=== PATIENT | female | born 1985 ===

== ENCOUNTER 2017-08-29 00:37 | Inpatient (IN) | payer MEDICAID, OTHER ==
[2017-08-29 02:08] LABS: BASO # 0.1 K/uL (0.0-0.2); BASO % 0.9 % (0.0-2.0); EOS # 0.2 K/uL (0.0-0.7); HCG,QUALITATIVE URINE NEGATIVE (NEGATIVE); HEMOGLOBIN 12.9 g/dL (11.0-16.0); LYMPH # 2.2 K/uL (1.0-4.3); LYMPH % 18.1 % (20.0-40.0); MEAN CELL VOLUME 87.8 fL (81.0-99.0); MEAN CORPUSCULAR HEMOGLOBIN 29.7 pg (27.0-31.0); MEAN CORPUSCULAR HGB CONC 33.8 g/dL (33.0-37.0); MEAN PLATELET VOLUME 8.9 fL (7.2-11.7); MONO # 1.1 K/uL (0.0-0.8); MONO % 9.1 % (0.0-10.0); NEUT # 8.6 K/uL (1.8-7.0); NEUT % 69.9 % (50.0-75.0); RBC 4.33 Mil/uL (3.80-5.20); RED CELL DISTRIBUTION WIDTH 12.7 % (11.5-14.5); WHITE BLOOD COUNT 12.3 K/uL (4.8-10.8)
[2017-08-29 02:14] LABS: SQUAMOUS EPITHIAL 3 /hpf (0-5); URINE BILIRUBIN NEGATIVE (NEGATIVE); URINE BLOOD 1+ (NEGATIVE); URINE CLARITY Clear (Clear); URINE COLOR Yellow (YELLOW); URINE GLUCOSE (UA) NORMAL (Normal); URINE LEUKOCYTE ESTERASE NEG Leu/uL (Negative); URINE PROTEIN NEGATIVE (NEGATIVE); URINE UROBILINOGEN NORMAL mg/dL (0.2-1.0)
[2017-08-29 02:20] LABS: ACETAMINOPHEN < 10.0 ug/mL (10.0-30.0); SALICYLATE < 1.0 mg/dL 1
[2017-08-29 02:22] LABS: ALB/GLOB RATIO 1.2 (1.0-2.1); ALBUMIN 4.1 g/dL (3.5-5.0); ALT/SGPT 21 U/L (9-52); AST/SGOT 19 U/L (14-36); BLOOD UREA NITROGEN 11 mg/dL (7-17); CALCIUM 8.7 mg/dl (8.6-10.4); GFR AFRICAN-AMERICAN > 60; GFR NON-AFRICAN AMERICAN > 60
[2017-08-29 02:25] LABS: BARBITURATES, UR NEGATIVE (NEGATIVE); OPIATES, UR NEGATIVE (NEGATIVE); PHENCYCLIDINE, UR NEGATIVE (NEGATIVE)
[2017-08-29 02:38] LABS: BENZODIAZEPINES, UR POSITIVE (NEGATIVE)
--- NOTE | 2017-08-29 04:30 | C.PDOC ---
Time Seen by Provider: 08/29/17 01:10 Chief Complaint (Nursing): Psychiatric Evaluation History Per: Patient Onset/Duration Of Symptoms: Days Current Symptoms Are (Timing): Worse Suicide/Self Injury Attempted (Context): None Modifying Factor(s): Alcohol Severity: Moderate Associated Symptoms: Depression, Suicidal Thoughts Additional History Per: Prior Records Past Medical History Reviewed: Historical Data, Nursing Documentation, Vital Signs Vital Signs: Last Vital Signs Temp 98.7 F 08/29/17 04:01 Pulse 98 H 08/29/17 04:01 Resp 18 08/29/17 04:01 BP 95/57 L 08/29/17 04:01 Pulse Ox 97 08/29/17 04:01 - Medical History PMH: Anxiety, Depression, Gastritis, Post Traumatic Stress Disorder Family History: States: Unknown Family Hx - Social History Hx Alcohol Use: Yes (TODAY) Hx Substance Use: No - Immunization History Hx Tetanus Toxoid Vaccination: No Hx Influenza Vaccination: No Hx Pneumococcal Vaccination: No Review Of Systems Except As Marked, All Systems Reviewed And Found Negative. Constitutional: Negative for: Fever, Weakness Cardiovascular: Negative for: Chest Pain Respiratory: Negative for: Shortness of Breath Gastrointestinal: Negative for: Vomiting, Abdominal Pain Musculoskeletal: Negative for: Neck Pain Skin: Negative for: Rash Neurological: Negative for: Weakness, Numbness Physical Exam - Physical Exam Appears: Non-toxic, No Acute Distress, Other (AOB) Skin: Normal Color, Warm, Dry Head: Atraumatic, Normacephalic Eye(s): bilateral: PERRL Neck: Normal ROM, Supple Cardiovascular: Rhythm Regular Respiratory: Normal Breath Sounds, No Accessory Muscle Use Gastrointestinal/Abdominal: Soft, No Tenderness Back: No CVA Tenderness Extremity: Normal ROM, Other (scars on b/l volar forearms from previous cutting. ) Pulses: Left Radial: Normal, Right Radial: Normal Neurological/Psych: Oriented x3, Normal Motor, Normal Sensation ED Course And Treatment - Laboratory Results Result Diagrams: 08/29/17 02:05 08/29/17 02:05 Urine POC: Negative O2 Sat by Pulse Oximetry: 97 Pulse Ox Interpretation: Normal Progress Note: Pt is medically stable for psychiatric admission. Disposition Counseled Patient/Family Regarding: Studies Performed, Diagnosis - Disposition Disposition: HOSPITALIZED Disposition Time: 04:30 Condition: STABLE - Clinical Impression Clinical Impression: Major depression Decision To Admit - Pt Status Changed To: Hospital Disposition Of: Inpatient - Admit Certification Admit to Inpatient:: After my assessment, the patient will require hospitalization for at least two midnights. This is because of the severity of symptoms shown, intensity of services needed, and/or the medical risk in this patient being treated as an outpatient. - InPatient: Physician Admission Certification: I certify that this patient requires 2 or more midnights of care for the following reason:: Psych. - . Bed Request Type: Psychiatry Admitting Physician: Marie Zimmerman Patient Diagnosis: Major depression
--- NOTE | 2017-08-29 06:19 | PCM.BM ---
<Juana Herrera - Last Filed: 08/29/17 06:18> Treatment Plan Problems - Problems identified on initial assessmt Auditory Hallucinations Date Initiated: 08/29/17 Time Initiated: 05:30 Assessment reference: NA Suicidal Ideation Date Initiated: 08/29/17 Time Initiated: 05:30 Assessment reference: NA Status: Active Treatment assets and liabiliti Patient Assests: ADL independent, negotiates basic needs Patient Liabilities: substance abuse (Alcohol) - Milieu Protocol Maintain good personal hygiene: daily Encourage regular showers, daily Remind patient to perform daily oral care, every shift Assist patient to perform ADL's Maintain personal safety: every shift Educate patient to report safety concerns to staff, every shift Monitor environment for contraband/sharps Medication safety: Monitor for expected outcome, potential side effects: every shift, Assess barriers to learning: every shift, Assess readiness for medication education: every shift <Marissa Harrison - Last Filed: 08/30/17 13:27> Family Contact Family involvement: Family/SO is involved Family contact: Patient declines to allow family contact at present - Goals for Treatment Patient goals for treatment: "I want to go back to my private psychiatrist." Discharge/Continuing Care - Education Needs Education Needs: Patient Medication, Patient Coping Skills - Discharge Discharge Criteria: Tolerates medication w/o severe side effects, Reduction of target symptoms Discharge to:: Home, With Family - Treatment Team Participation Discussed with Family/SO: No Was Patient/Family/SO present at Treatment Team Meeting: Yes
[2017-08-29] MEDS: Multiple Vitamins Tab PO SCH (10:20)
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
[2017-08-30 06:40] VITALS: O2SAT 98
[2017-08-30] MEDS: Multiple Vitamins Tab PO SCH (10:14)
--- NOTE | 2017-08-30 10:33 | PCM.PYCHPN ---
Psychiatric Progress Note - Psychiatric Progress Note Patient seen today, length of contact: 15 min Patient Chief Complaint: I'm feeling little better.' Problems Identified/Issues Discussed: Patient seen and evaluated, chart reviewed and discussed with the nurse. Pt still reports depressed mood and reports feelings of hopelessness and helplessness. She reports some improvement in sleep. However she remained isolated and withdrawn. She appears somewhat internally preoccupied and guarded. She is taking medications and denies any side effects Symptoms are improving but she needs more time for stabilization. Supportive therapy and psychoeducation were given. Medication Change: Yes Medical Record Reviewed: Yes Mental Status Examination - Cognitive Function Orientation: Person, Place, Situation, Time Memory: Intact Attention: WNL Concentration: Poor Association: Loose Fund of Knowledge: Poor - Mood Mood: Depressed, Anxious - Affect Affect: Constricted, Depressed - Speech Speech: Soft - Formal Thought Process Formal Thought Process: Hallucinations - Suicidal Ideation Suicidal Ideation: No - Homicidal Ideation Homicidal Ideation: No Goal/Treatment Plan - Goal/Treatment Plan Need for Continued Stay: Severe depression anxiety, Severe functional impairment Progress Toward Problem(s) and Goals/Treatment Plan: Major depressive disorder recurrent severe with psychotic features CBT Psychoeducation Supportive therapy, group therapy, individual therapy Hydroxyzine 25 mg by mouth every 6 hours when necessary Trazodone 50 mg by mouth daily at bedtime Sertraline 50 mg PO Daily Aripiprazole 10 mg by mouth daily at bedtime - Smoking Cessation Smoking Cessation Initiated: No
[2017-08-31] MEDS: Multiple Vitamins Tab PO SCH (09:08)
--- NOTE | 2017-08-31 14:16 | PCM.PYCHPN ---
Psychiatric Progress Note - Psychiatric Progress Note Patient seen today, length of contact: 15 min Patient Chief Complaint: I'm feeling little better.' Problems Identified/Issues Discussed: Patient seen and evaluated, chart reviewed and discussed with the nurse. Pt still reports depressed mood and reports feelings of hopelessness and helplessness. She reports some improvement in sleep. However she remained isolated and withdrawn. She appears somewhat internally preoccupied and guarded. She is taking medications and denies any side effects Symptoms are improving but she needs more time for stabilization. Supportive therapy and psychoeducation were given. Medication Change: Yes (Increase Zoloft) Medical Record Reviewed: Yes Mental Status Examination - Cognitive Function Orientation: Person, Place, Situation, Time Memory: Intact Attention: WNL Concentration: Poor Association: Loose Fund of Knowledge: Poor - Mood Mood: Depressed, Anxious - Affect Affect: Constricted, Depressed - Speech Speech: Soft - Formal Thought Process Formal Thought Process: Hallucinations - Suicidal Ideation Suicidal Ideation: No - Homicidal Ideation Homicidal Ideation: No Goal/Treatment Plan - Goal/Treatment Plan Need for Continued Stay: Severe depression anxiety, Severe functional impairment Progress Toward Problem(s) and Goals/Treatment Plan: Major depressive disorder recurrent severe with psychotic features CBT Psychoeducation Supportive therapy, group therapy, individual therapy Hydroxyzine 25 mg by mouth every 6 hours when necessary Trazodone 100 mg by mouth daily at bedtime Sertraline 100 mg PO Daily Aripiprazole 10 mg by mouth daily at bedtime
[2017-09-01 06:19] VITALS: RESP 20
[2017-09-01] MEDS: Multiple Vitamins Tab PO SCH (10:19)
[2017-09-01] MEDS ORDERED: Aluminum Hydroxide/Magnesium Hydroxide Susp (30 mL) PO PRN (21:44)
[2017-09-02 06:49] VITALS: TEMP 98.5
--- NOTE | 2017-09-02 09:03 | PCM.PYCHPN ---
Psychiatric Progress Note - Psychiatric Progress Note Patient seen today, length of contact: 15 min Patient Chief Complaint: I'm feeling little better.' Problems Identified/Issues Discussed: Patient seen and evaluated, chart reviewed and discussed with the nurse. Pt reports improvement in her depressed mood and reports reports improvement in her feelings of hopelessness and helplessness. She reports improvement in sleep. She is taking medications and denies any side effects Symptoms are improving but she needs more time for stabilization. Supportive therapy and psychoeducation were given. Medication Change: Yes (Increase Zoloft) Medical Record Reviewed: Yes Mental Status Examination - Cognitive Function Orientation: Person, Place, Situation, Time Memory: Intact Attention: WNL Concentration: WNL Association: WNL Fund of Knowledge: Poor - Mood Mood: Depressed, Anxious - Affect Affect: Constricted, Depressed - Speech Speech: Soft - Formal Thought Process Formal Thought Process: No Impairment - Suicidal Ideation Suicidal Ideation: No - Homicidal Ideation Homicidal Ideation: No Goal/Treatment Plan - Goal/Treatment Plan Need for Continued Stay: Severe depression anxiety, Severe functional impairment Progress Toward Problem(s) and Goals/Treatment Plan: Major depressive disorder recurrent severe with psychotic features CBT Psychoeducation Supportive therapy, group therapy, individual therapy Hydroxyzine 25 mg by mouth every 6 hours when necessary Trazodone 100 mg by mouth daily at bedtime Sertraline 200 mg PO Daily Aripiprazole 10 mg by mouth daily at bedtime
[2017-09-02 09:09] VITALS: BP 113/76; PULSE 76
[2017-09-02] MEDS: Multiple Vitamins Tab PO SCH (09:36)
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
== END 2017-09-02 11:00 | disposition home or self-care (01) | DRG 430 ==
LOC: C.ER 00:37 → EEVIPCON 04:31 → C.5E 04:31
PROVIDERS: ADMIT Psychiatry & Neurology Psychiatry; ATTEND Psychiatry & Neurology Psychiatry
PROC: GZHZZZZ Group Psychotherapy (ICD-10-PCS; principal; 2017-08-29)
PROC: GZ58ZZZ Individual Psychotherapy, Cognitive-Behavioral (ICD-10-PCS; 2017-08-29)
PROC: GZ56ZZZ Individual Psychotherapy, Supportive (ICD-10-PCS; 2017-08-29)
DX: F33.3 Major depressive disorder, recurrent, severe with psychotic symptoms (principal); F43.10 Post-traumatic stress disorder, unspecified; G47.00 Insomnia, unspecified; Z91.410 Personal history of adult physical and sexual abuse; R45.851 Suicidal ideations; F41.1 Generalized anxiety disorder

== ENCOUNTER 2017-11-03 21:06 | Emergency (ER) | payer MEDICAID, OTHER ==
[2017-11-03 21:18] VITALS: BP 94/65; PULSE 104; RESP 18; TEMP 98.4; O2SAT 96
--- NOTE | 2017-11-03 21:56 | C.PDOC ---
History Of Present Illness 32 year old female presents to the ED c/o itching insect bites to her right lower leg. Patient noticed new swelling and redness to the area. Patient states she did not take any medications at home. Patient denies fever, chills, nausea, vomit, weakness, numbness, recent travel, sick contacts. Time Seen by Provider: 11/03/17 21:28 Chief Complaint (Nursing): Lower Extremity Problem/Injury History Per: Patient History/Exam Limitations: no limitations Onset/Duration Of Symptoms: Days Current Symptoms Are (Timing): Still Present Recent travel outside of the [place]: No Additional History Per: Patient - Ankle/Foot Description Of Injury: Other Past Medical History Reviewed: Historical Data, Nursing Documentation, Vital Signs Vital Signs: Last Vital Signs Temp 98.4 F 11/03/17 21:14 Pulse 104 H 11/03/17 21:14 Resp 18 11/03/17 21:14 BP 94/65 L 11/03/17 21:14 Pulse Ox 96 11/03/17 23:30 - Medical History PMH: Anxiety, Depression, Gastritis, HTN, Post Traumatic Stress Disorder Denies: Diabetes, Hepatitis, HIV, Chronic Kidney Disease, Seizures, Sexually Transmitted Disease Surgical History: No Surg Hx - [facility] Procedures GROUP PSYCHOTHERAPY (08/29/17) INDIVIDUAL PSYCHOTHERAPY, COGNITIVE-BEHAVIORAL (08/29/17) INDIVIDUAL PSYCHOTHERAPY, SUPPORTIVE (08/29/17) Family History: States: Unknown Family Hx - Social History Hx Alcohol Use: Yes Hx Substance Use: No - Immunization History Hx Tetanus Toxoid Vaccination: No Hx Influenza Vaccination: No Hx Pneumococcal Vaccination: No Review Of Systems Constitutional: Negative for: Fever, Chills ENT: Negative for: Mouth Swelling, Throat Swelling Cardiovascular: Negative for: Chest Pain Respiratory: Negative for: Cough, Shortness of Breath Gastrointestinal: Negative for: Nausea, Vomiting Musculoskeletal: Positive for: Leg Pain Skin: Positive for: Rash Neurological: Negative for: Weakness, Numbness Physical Exam - Physical Exam Appears: Non-toxic, No Acute Distress Skin: Warm, Dry, Rash (scattered erythematous papules to right lower leg. No streaking) Head: Atraumatic, Normacephalic Eye(s): bilateral: Normal Inspection Oral Mucosa: Moist Tongue: No Swelling Lips: No Swelling Throat: Normal, No Erythema, No Exudate Neck: Normal ROM, Supple Chest: Symmetrical Cardiovascular: Rhythm Regular Respiratory: Normal Breath Sounds, No Rales, No Rhonchi, No Wheezing Extremity: Normal ROM, No Tenderness, No Calf Tenderness, Capillary Refill (< 2 seconds), No Swelling Extremity: Bilateral: Atraumatic Pulses: Left Dorsalis Pedis: Normal, Right Dorsalis Pedis: Normal Neurological/Psych: Oriented x3, Normal Speech, Normal Cognition, Normal Motor, Normal Sensation Gait: Steady ED Course And Treatment O2 Sat by Pulse Oximetry: 96 (ON RA) Pulse Ox Interpretation: Normal Progress Note: Plan: - Benadryl 25 mg PO. Patient is resting comfortably, tolerating PO, has no shortness of breath, has no intra-oral swelling, no stridor. Patient notes that pruritus has improved.. Patient was advised to avoid potential allergens, and to follow up with physician in 1-2 days. Disposition Counseled Patient/Family Regarding: Diagnosis, Need For Followup, Rx Given - Disposition Referrals: [facility] [Outside] Disposition: HOME/ ROUTINE Disposition Time: 21:53 Condition: STABLE Additional Instructions: PLEASE FOLLOW UP WITH PMD OR CLINIC IN 2 DAYS TAKE BENADRYL NEEDED FOR ITCHING RETURN IF MODERATE PAIN, SWELLING, DRAINING , FEVER OR WORSE Instructions: Insect Bites and Stings (DC) Forms: [employer] (Macanese) - Clinical Impression Clinical Impression: Insect bite - PA / PRODUCT SAFETY CONSULTANT / Resident Statement MD/DO has reviewed & agrees with the documentation as recorded. - Scribe Statement The provider has reviewed the documentation as recorded by the Scribe Dante Cee All medical record entries made by the Scribe were at my direction and personally dictated by me. I have reviewed the chart and agree that the record accurately reflects my personal performance of the history, physical exam, medical decision making, and the department course for this patient. I have also personally directed, reviewed, and agree with the discharge instructions and disposition.
== END 2017-11-03 22:09 | disposition home or self-care (01) ==
LOC: C.ER 21:06
DX: S80.861A Insect bite (nonvenomous), right lower leg, initial encounter (principal); W57.XXXA Bitten or stung by nonvenomous insect and other nonvenomous arthropods, initial encounter; Y92.9 Unspecified place or not applicable

== ENCOUNTER 2018-01-29 17:57 | Inpatient (IN) | payer OTHER ==
[2018-01-29 19:08] LABS: BASO # 0.1 K/uL (0.0-0.2); BASO % 0.8 % (0.0-2.0); EOS # 0.2 K/uL (0.0-0.7); EOS % 2.2 % (0.0-4.0); HEMOGLOBIN 14.2 g/dL (11.0-16.0); LYMPH # 1.7 K/uL (1.0-4.3); LYMPH % 21.2 % (20.0-40.0); MEAN CELL VOLUME 88.5 fL (81.0-99.0); MEAN CORPUSCULAR HEMOGLOBIN 29.8 pg (27.0-31.0); MEAN CORPUSCULAR HGB CONC 33.7 g/dL (33.0-37.0); MEAN PLATELET VOLUME 8.3 fL (7.2-11.7); MONO # 0.6 K/uL (0.0-0.8); MONO % 7.5 % (0.0-10.0); NEUT # 5.5 K/uL (1.8-7.0); NEUT % 68.3 % (50.0-75.0); NRBC % 0.1 % (0.0-2.0); RBC 4.74 Mil/uL (3.80-5.20); RED CELL DISTRIBUTION WIDTH 12.5 % (11.5-14.5)
[2018-01-29 19:09] LABS: HCG,QUALITATIVE URINE NEGATIVE (NEGATIVE)
[2018-01-29 19:12] LABS: URINE BILIRUBIN NEGATIVE (NEGATIVE); URINE BLOOD 1+ (NEGATIVE); URINE CLARITY Clear (Clear); URINE COLOR Colorless (YELLOW); URINE GLUCOSE (UA) NORMAL (Normal); URINE LEUKOCYTE ESTERASE NEG Leu/uL (Negative); URINE PROTEIN NEGATIVE (NEGATIVE); URINE UROBILINOGEN NORMAL mg/dL (0.2-1.0)
[2018-01-29 19:23] LABS: ALBUMIN 4.6 g/dL (3.5-5.0)
[2018-01-29 19:25] LABS: ALB/GLOB RATIO 1.3 (1.0-2.1); ALT/SGPT 26 U/L (9-52); AST/SGOT 24 U/L (14-36); BARBITURATES, UR NEGATIVE (NEGATIVE); BENZODIAZEPINES, UR NEGATIVE (NEGATIVE); BLOOD UREA NITROGEN 8 mg/dL (7-17); CALCIUM 9.5 mg/dl (8.6-10.4); GFR NON-AFRICAN AMERICAN > 60; OPIATES, UR NEGATIVE (NEGATIVE); PHENCYCLIDINE, UR NEGATIVE (NEGATIVE)
--- NOTE | 2018-01-29 19:53 | C.PDOC ---
History Of Present Illness 32 y/o female pt with hx of depression and suicidal attempts presents to the ER for c/o hearing voices that tells her to self-harm. Pt reports she drinks alcohol and listens to music in attempt to block out the voices. Pt denies visu al hallucination, HI, DM, HTN, nausea and vomiting. Pt was admitted on August 2017 for similar sx. Pt notes she takes medication for her depression. Time Seen by Provider: 01/29/18 18:26 Chief Complaint (Nursing): Psychiatric Evaluation History Per: Patient History/Exam Limitations: no limitations Onset/Duration Of Symptoms: Days Current Symptoms Are (Timing): Still Present Modifying Factor(s): Alcohol Associated Symptoms: Depression, Paranoia Past Medical History Reviewed: Historical Data, Nursing Documentation, Vital Signs Vital Signs: Last Vital Signs Temp 98.2 F 01/29/18 18:26 Pulse 114 H 01/29/18 18:26 Resp 26 H 01/29/18 18:26 BP 125/80 01/29/18 18:26 Pulse Ox 99 01/29/18 18:26 - Medical History PMH: Anxiety, Depression, Gastritis, HTN, [facility] Tra[facility] PS[facility] (08/29/17) INDIVIDUAL PSYCHOTHERAPY, COGNITIVE-BEHAVIORAL (08/29/17) INDIVIDUAL PSYCHOTHERAPY, SUPPORTIVE (08/29/17) Family History: States: Unknown Family Hx - Social History Hx Alcohol Use: Yes Hx Substance Use: No - Immunization History Hx Tetanus Toxoid Vaccination: No Hx Influenza Vaccination: No Hx Pneumococcal Vaccination: No Review Of Systems Except As Marked, All Systems Reviewed And Found Negative. Constitutional: Negative for: Other (hx of DM, HTN) Gastrointestinal: Negative for: Nausea, Vomiting Neurological: Positive for: Other (audio hallucination; no visual hallucination) Psych: Positive for: Depression, Suicidal ideation. Negative for: Other (HI) Physical Exam - Physical Exam Appears: Non-toxic, Other (fidgety and has alcohol on breath) Skin: Warm, Dry Head: Normacephalic Eye(s): bilateral: Normal Inspection, EOMI Chest: Symmetrical Cardiovascular: Rhythm Regular Respiratory: Normal Breath Sounds Gastrointestinal/Abdominal: Soft, No Tenderness Back: No CVA Tenderness Neurological/Psych: Oriented x3, Normal Speech, Other (paranoid ) ED Course And Treatment - Laboratory Results Result Diagrams: 01/29/18 19:05 01/29/18 19:05 O2 Sat by Pulse Oximetry: 99 (RA) Pulse Ox Interpretation: Normal Medical Decision Making Medical Decision Making: Plans: -- chem labs -- blood work -- HCG -- UA Labs remarkable for EtoH of 223, estimate clinically sober at midnight. 19:58 Crisis is evaluating pt. 23:35 Crisis states pt needs be reevaluated as they were not able to get enough information from her; will RTED to continue to eval pt. Disposition - Disposition Disposition Time: 23:41 Condition: STABLE - Clinical Impression Clinical Impression: Alcohol intoxication, Major depression, Suicidal ideation - Scribe Statement The provider has reviewed the documentation as recorded by the Scribe Velazquez Do Provider Attestation: All medical record entries made by the Scribe were at my direction and personally dictated by me. I have reviewed the chart and agree that the record accurately reflects my personal performance of the history, physical exam, medical decision making, and the department course for this patient. I have also personally directed, reviewed, and agree with the discharge instructions and disposition. Physician Patient Turnover Patient Signed Over To: Jeannie Garrett Handoff Comments: pending crisis eval
[2018-01-30] MEDS ORDERED: Aluminum Hydroxide/Magnesium Hydroxide Susp (30 mL) PO PRN (04:02)
--- NOTE | 2018-01-30 04:35 | PCM.BM ---
<Nguyen Andrade - Last Filed: 01/30/18 04:33> Treatment Plan Problems - Problems identified on initial assessmt Depression Date Initiated: 01/30/18 Time Initiated: 04:33 Assessment reference: NA Status: Active ([place]) Hallucinations Date Initiated: 01/30/18 Time Initiated: 04:34 Assessment reference: NA Status: Active Treatment assets and liabiliti Patient Assests: cooperative, insightful, ADL independent, physically healthy, good support system, negotiates basic needs Patient Liabilities: substance abuse - Milieu Protocol Maintain good personal hygiene: daily Encourage regular showers, daily Remind patient to perform daily oral care, daily Assist patient to perform ADL's Maintain personal safety: every shift Educate patient to report safety concerns to staff, every shift Monitor environment for contraband/sharps Medication safety: Monitor for expected outcome, potential side effects: every shift, Assess barriers to learning: every shift, Assess readiness for medication education: every shift <Rubin Kelley - Last Filed: 01/31/18 11:21> - Diagnosis (1) Bipolar disorder, curr episode mixed, severe, with psychotic features Status: Acute Interventions: 01/31/18 11:21 * Assess/adjust medications daily and /or as needed * See patient on an individual basis 7x/week to assess level of manic behaviors and stability * Discuss risks, benefits, side effects and alternatives of medications * (2) Alcohol intoxication Status: Acute Interventions: 01/31/18 11:21 * Assess 7x/week regarding severity of withdrawal * Educate regarding risks, benefits, side effects and alternatives of medications * Use Motivational Interviewing for abstinence * Use CBT for relapse prevention * Medication management for withdrawal symptoms * Encourage medication assisted treatment * <Marissa Harrison - Last Filed: 01/31/18 13:33> Family Contact Family involvement: Famliy/SO not involved - Goals for Treatment Patient goals for treatment: "I want and IOP program." Discharge/Continuing Care - Education Needs Education Needs: Patient Medication, Patient Coping Skills - Discharge Discharge Criteria: Tolerates medication w/o severe side effects, No longer exhibiting s/s of withdrawal, Reduction of target symptoms Discharge to:: Home, With Family - Treatment Team Participation Discussed with Family/SO: No Was Patient/Family/SO present at Treatment Team Meeting: Yes
[2018-01-30 07:18] VITALS: O2SAT 96
--- NOTE | 2018-01-31 11:19 | PCM.PYCHPN ---
Psychiatric Progress Note - Psychiatric Progress Note Patient seen today, length of contact: 15 min Medication Change: Yes Medical Record Reviewed: Yes Mental Status Examination - Cognitive Function Orientation: Person, Place, Situation, Time Memory: Intact Attention: WNL Concentration: Poor Association: WNL Fund of Knowledge: Poor - Mood Mood: Depressed, Anxious - Affect Affect: Constricted - Speech Speech: Soft - Formal Thought Process Formal Thought Process: Hallucinations, Delusions, Paranoia - Suicidal Ideation Suicidal Ideation: No - Homicidal Ideation Homicidal Ideation: No Goal/Treatment Plan - Goal/Treatment Plan Need for Continued Stay: Severe depression anxiety, Severe functional impairment
--- NOTE | 2018-02-01 06:12 | PCM.PSYCH ---
Initial Psychiatric Evaluation - Initial Psychiatric Evaluation Legal Status: Capacity (I WAS SAD) Chief Complaint (in patient's own words): I WAS SAD AND MAD Patient's Reaction to Hospitalization: I FEEL SAFE HERE History of Present Illness and Precipitating Events: PT IS A 32 YEAR OLD FEMALE WHO LIVES WITH SISTER AND SISTER'S [id number]. PT HAS ONE CHILD. THISIS PT'S SECOND PSYCHIATRIC HOSPITALIZATION AT [facility]. PT GAS CUT WRIST BUT HAD NO CURRENT PLAN TO HURT HERSELF. PT HAS BEEN ON ZOLOFT IN THE PAST. PT STARTED DRINKING IN HER EDARLY TEENS AND ALCOHOL HAS ALWAYS BEEN A PROBLEM PT DRINKS ABOUT A PINT OF ALCOHOL WHEN SHE BINGES. PT HAS NEVER BEEN IN DETOX OR REHAB. PT DENIES USE OF ANY OTHER SUBSTANCES PT STATES SHE HEAR A FEMALE VPICE INSIDE HER HEAD TELLING HER TO HURT HERSELF AND CALLING HER NAMES FATHER IS MOTHER IS ALIVE PT HAS FIVE SISTERS AND ONE BROTHER. SHE IS 6TH IN A SIBSHIP OF SEVEN. 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 HISTORY WORKED A [employer] ABOUT TWO YEARS AGO FAMILY SUBSTANCE ABUSE HISTORY PER PT FATHER WAS PSYCHOTIC AND HE OF CIRRHOSIS OF THE LIVER Current Medications: Active Medications Generic Name Dose Route Start Last Admin Trade Name Freq PRN Reason Stop Dose Admin Al Hydrox/Mg Hydrox/Simethicone 30 ml 01/30/18 04:02 01/30/18 04:15 Maalox 30 Ml PO 30 ml Q6H PRN Administration Indigestion / Heartburn Aripiprazole 10 mg 01/30/18 16:30 01/31/18 09:33 Abilify PO 10 mg DAILY MICK Administration Chlordiazepoxide 25 mg 01/31/18 11:19 Librium PO Q8 PRN Symptoms of alcohol withdrawl Famotidine 20 mg 01/30/18 10:00 01/31/18 09:33 Pepcid PO 20 mg DAILY MICK Administration Hydroxyzine HCl 25 mg 01/30/18 03:59 01/30/18 04:15 Atarax PO 25 mg Q6H PRN Administration Anxiety Lorazepam 1 mg 01/30/18 16:22 Ativan PO Q6 PRN Withdrawal Symptoms Olanzapine 5 mg 01/31/18 22:00 01/31/18 21:56 Zyprexa PO 5 mg HS MICK Administration Sertraline HCl 50 mg 01/30/18 16:30 01/31/18 09:33 Zoloft PO 50 mg DAILY MICK Administration Trazodone HCl 50 mg 01/30/18 22:00 01/31/18 21:56 Desyrel PO 50 mg HS MICK Administration Past Psychiatric History - Past Psychiatric History Prior Professional Help: SEE HPI Pertinent Medical Hx (Current Medical&Sleep Prob, Allergies): Allergies Allergy/AdvReac Type Severity Reaction Status Date / Time No Known Allergies Allergy Verified 11/03/17 21:18 ALPRAZolam [Xanax] 0.5 mg PO BID 08/29/17 Ergocalciferol [Drisdol 50,000 Intl Units Cap] 1 cap PO QD7 08/29/17 ARIPiprazole [Abilify] 10 mg PO HS #30 tab 09/02/17 Sertraline [Zoloft] 50 mg PO DAILY #30 tab 09/02/17 hydrOXYzine HCl [Atarax] 25 mg PO BID PRN #20 tab 09/02/17 traZODone [Desyrel] 100 mg PO HS PRN #30 tab 09/02/17 Review of Systems - Constitutional Constitutional: Malaise - EENT Eyes: UNREMARKABLE Ears: UNREMARKABLE Nose/Mouth/Throat: UNREMARKABLE - Breasts Breasts: UNREMARKABLE - Cardiovascular Cardiovascular: UNREMARKABLE - Respiratory Respiratory: UNREMARKABLE - Gastrointestinal Gastrointestinal: Dyspepsia, Heartburn - Genitourinary Genitourinary: UNREMARKABLE - Reproductive: Female Reproductive:Female: UNREMARKABLE - Menstruation Menstruation: UNREMARKABLE - Musculoskeletal Musculoskeletal: UNREMARKABLE - Integumentary Integumentary: UNREMARKABLE - Neurological Neurological: Tremor - Psychiatric Psychiatric: Anxiety, Auditory Hallucinations, Depression - Endocrine Endocrine: UNREMARKABLE - Hematologic/Lymphatic Hematologic: UNREMARKABLE Mental Status Examination - Personal Presentation Personal Presentation: Looks older than stated age - Affect Affect: Constricted - Motor Activity Motor Activity: Calm - Reliability in Providing Information Reliability in Providing Information: Fair - Speech Speech: Organized - Mood Mood: Depressed, Anxious - Formal Thought Process Formal Thought Process: Hallucinations - Obsessions/Compulsions Obsessions: No Compulsions: No - Cognitive Functions Orientation: Person, Place, Situation, Time Sensorium: Alert Attention/Concentration: Attentive Abstract Thinking: Nichols Estimate of Intelligence: Average Judgement: Intact, as evidence by: Other Memory: Recent intact, as evidence by: Other, Remote intact, as evidenced by: Other - Risk Risk: Suicidal, Seizure, Withdrawal - Strength & Assets Inventory Strength & Assets Inventory: Family support, Employment history - Limitations Limitations: Other DSM 5 DX - DSM 5 DSM 5 Diagnosis: SEE BELOW - Recommended/Plan of Treatment Treatment Recommendations and Plan of Treatment: MAJOR DEPRESSIVE DISORDER RECURRENT SEVERE WITH PSYCHOTIC FEATURES ZOLOFT ABILIFY TRAZODONE BI [place] SUPPORTIVE PSYCHOTHERAPY GROUP MILIEU AND RECREATIONAL THERAPY ALCOHOL WITHDRAWAL ATIVAN TAPER ALCOHOL USE DISORDER [place] CBT GROUP MILIEU RECREATIONAL THERAPIES SUPPORTIVE INDIVIDUAL PSYCHOTHERAPY Projected ELOS: 7 DAYS Prognosis: FAIR Discharge Plan and Discharge Criteria: NO SUICIDAL IDEATION - Smoking Cessation Smoking Cessation Initiated: No
[2018-02-01 06:54] VITALS: BP 109/59; PULSE 63; RESP 20; TEMP 97.6
--- NOTE | 2018-02-01 10:46 | PCM.PYCHDC ---
Mental Status Examination - Mental Status Examination Orientation: Person, Place, Situation, Time Memory: Intact Mood: Neutral Affect: Constricted Speech: Soft Attention: WNL Concentration: WNL Association: WNL Fund of Knowledge: WNL Formal Thought Process: No Impairment Description of patient's judgement and insight: good, fair Psychotic Thoughts and Behaviors: denies any AVH Suicidal Ideation: No Current Homicidal Ideation?: No Discharge Summary - Discharge Note Reason for Hospitalization: PT IS A 32 YEAR OLD FEMALE WHO LIVES WITH SISTER AND SISTER'S [id number]. PT HAS ONE CHILD. THISIS PT'S SECOND PSYCHIATRIC HOSPITALIZATION AT [facility]. PT GAS CUT WRIST BUT HAD NO CURRENT PLAN TO HURT HERSELF. PT HAS BEEN ON ZOLOFT IN THE PAST. PT STARTED DRINKING IN HER EDARLY TEENS AND ALCOHOL HAS ALWAYS BEEN A PROBLEM PT DRINKS ABOUT A PINT OF ALCOHOL WHEN SHE BINGES. PT HAS NEVER BEEN IN DETOX OR REHAB. PT DENIES USE OF ANY OTHER SUBSTANCES PT STATES SHE HEAR A FEMALE VPICE INSIDE HER HEAD TELLING HER TO HURT HERSELF AND CALLING HER NAMES FATHER IS MOTHER IS ALIVE PT HAS FIVE SISTERS AND ONE BROTHER. SHE IS 6TH IN A SIBSHIP OF SEVEN. 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 HISTORY WORKED A [employer] ABOUT TWO YEARS AGO FAMILY SUBSTANCE ABUSE HISTORY PER PT FATHER WAS PSYCHOTIC AND HE OF CIRRHOSIS OF THE LIVER Consultations:: List each consultation separately and include: 1. Reason for request. 2. Findings. 3. Follow-up Summary of Hospital Course include:: 1. Description of specific treatment plan utilized for patients during their course of treatmen. 2. Summarize the time- course for resolution of acute symptoms and/or regressed behaviors. 3. Describe issues identified and worked on during hospitalization. 4. Describe medication utilized. 5. Describe medical problems identified and treated. 6. Reassessment of suicide risk - Diagnosis (1) Bipolar disorder, curr episode mixed, severe, with psychotic features Current Visit: Yes Status: Acute (2) Alcohol intoxication Current Visit: Yes Status: Acute - Final Diagnosis (DSM 5) Condition upon Discharge: STABLE DSM 5: MAJOR DEPRESSIVE DISORDER RECURRENT SEVERE WITH PSYCHOTIC FEATURES ZOLOFT ABILIFY TRAZODONE BI HI SUPPORTIVE PSYCHOTHERAPY GROUP MILIEU AND RECREATIONAL THERAPY ALCOHOL WITHDRAWAL ATIVAN TAPER ALCOHOL USE DISORDER HI CBT GROUP MILIEU RECREATIONAL THERAPIES SUPPORTIVE INDIVIDUAL PSYCHOTHERAPY Disposition: HOME/ ROUTINE Prescriptions/Medication Reconciliation: ARIPiprazole [Abilify] 10 mg PO DAILY #30 tab Olanzapine [Zyprexa] 5 mg PO HS #30 tablet Sertraline [Zoloft] 50 mg PO DAILY #30 tab traZODone [Desyrel] 50 mg PO HS #30 tab
== END 2018-02-01 13:57 | disposition home or self-care (01) | DRG 753 ==
LOC: C.ER 17:57 → C.5E 01-30 02:33
PROVIDERS: ADMIT Psychiatry & Neurology Psychiatry; ATTEND Psychiatry & Neurology Psychiatry
PROC: HZ2ZZZZ Detoxification Services for Substance Abuse Treatment (ICD-10-PCS; principal; 2018-01-30)
DX: F31.64 Bipolar disorder, current episode mixed, severe, with psychotic features (principal); F10.230 Alcohol dependence with withdrawal, uncomplicated; F10.220 Alcohol dependence with intoxication, uncomplicated; Y90.7 Blood alcohol level of 200-239 mg/100 ml